=== PATIENT | male | born 2005 | race Caucasian/White ===

== ENCOUNTER 2024-09-26 10:43 | Emergency (ER) | payer BC ==
[~2024-09-26] VITALS: Ht 177.8 cm; Wt 67.0 kg
[2024-09-26] MEDS ORDERED: Ibuprofen 600 MG Tab PO ONE (11:10)
== END 2024-09-26 12:18 | disposition home or self-care (01) ==
LOC: ER 10:43
DX: S92.911A Unspecified fracture of right toe(s), initial encounter for closed fracture (principal); Z59.89 Other problems related to housing and economic circumstances; X58.XXXA Exposure to other specified factors, initial encounter
CPT/HCPCS: 73630; 99283-25; A9270